=== PATIENT | male | born 1995 | race Two or more races ===

== ENCOUNTER 2024-04-07 11:29 | Emergency (ER) | payer OTHER ==
[~2024-04-07] VITALS: Ht 180.3 cm; Wt 57.6 kg
[2024-04-07 11:51] VITALS: BP 93/65; O2SAT 95
[2024-04-07] MEDS ORDERED: RINGERS SOLUTION,LACTATED 1,000 ML IV STA (12:41)
[2024-04-07] MEDS ORDERED: KETOROLAC TROMETHAMINE 60 MG VIAL IM STA (12:43)
[2024-04-07] MEDS ORDERED: KETOROLAC TROMETHAMINE 60 MG VIAL IM ONE (13:09)
[2024-04-07 13:40] LABS: MEAN CELL VOLUME 91.3 fL (80.0-100.00); MEAN CORPUSCULAR HEMOGLOBIN 31.9 pg (27.00-32.0); MEAN CORPUSCULAR HGB CONC 34.9 g/dl (32.0-36.0); PLATELET COUNT 186 K/uL (150-450); RED BLOOD COUNT 5.04 M/uL (4.00-6.00); RED CELL DISTRIBUTION WIDTH 13.9 % (11.5-14.5)
[2024-04-07 14:04] LABS: ALBUMIN 4.2 gm/dL (3.4-5.0); BILIRUBIN TOTAL 0.87 mg/dL (0.3-1.2); BILIRUBIN,CONJUGATED 0.23 mg/dL (0.0-0.2); BILIRUBIN,UNCONJUGATED 0.64 mg/dL (0.0-0.6); CALCIUM 9.4 mg/dL (8.5-10.1); CREATININE SERUM 1.02 mg/dL (0.70-1.30); GFR 86.35; POTASSIUM 3.61 mEq/L (3.5-5.1)
[2024-04-07 14:28] LABS: PH,URINE 7.5 (5.0-8.0); URINE APPEARANCE Clear; URINE BILIRRUBIN Negative (NEGATIVE); URINE BLOOD Negative; URINE COLOR Yellow; URINE GLUCOSE Negative (NEGATIVE); URINE KETONE Trace (NEGATIVE); URINE LEUKOCYTE Negative; URINE NITRATE Negative; URINE PROTEIN Trace (NEGATIVE)
[2024-04-07] MEDS ORDERED: ACETAMINOPHEN 500 MG GEL..CAP PO ONE (14:30)
[2024-04-07 14:32] LABS: URINE BACTERIA 23.2 uL (0.0-1933); URINE EPITHELIAL CELLS 2.2 uL (0.0-38.8); URINE RBC 2.7 uL (0.0-20.8); URINE WBC 5.3 uL (0.0-23.2)
== END 2024-04-07 15:54 | disposition home or self-care (01) ==
LOC: ER 11:31
PROVIDERS: General Practice
DX: J10.1 Influenza due to other identified influenza virus with other respiratory manifestations (principal); Z20.822 Contact with and (suspected) exposure to COVID-19

== ENCOUNTER 2025-01-11 13:57 | Emergency (ER) | payer OTHER ==
[~2025-01-11] VITALS: Ht 177.8 cm; Wt 56.7 kg
[2025-01-11] MEDS ORDERED: KETOROLAC TROMETHAMINE 30 MG VIAL IM ONE (15:30)
[2025-01-11] MEDS ORDERED: KETOROLAC TROMETHAMINE 30 MG VIAL ONE (16:07)
== END 2025-01-11 17:59 | disposition home or self-care (01) ==
LOC: ER 13:58
DX: G89.11 Acute pain due to trauma (principal); M24.411 Recurrent dislocation, right shoulder